=== PATIENT | male | born 1995 | race Two or more races ===

== ENCOUNTER 2023-07-12 10:39 | Emergency (ER) | payer OTHER ==
[~2023-07-12] VITALS: Ht 180.3 cm; Wt 98.0 kg
[2023-07-12 10:43] VITALS: BP 136/73; PULSE 83; RESP 16; TEMP 98.2
[2023-07-12] MEDS ORDERED: antibiotic PO (10:44)
[2023-07-12] MEDS: AMOX TR/POT CLAV 875 MG/125 MG TABLET PO ONE (11:12)
[2023-07-12] MEDS: IBUPROFEN 600 MG TABLET PO ONE (11:12)
[2023-07-12] MEDS ORDERED: ACET-3385 PO (11:32)
[2023-07-12] MEDS ORDERED: IBUP-1492 PO (11:32)
[2023-07-12] MEDS ORDERED: AMOX1TAB16 PO (11:32)
== END 2023-07-12 12:00 | disposition home or self-care (01) ==
LOC: EMS 10:40
DX: H66.92 Otitis media, unspecified, left ear (principal)
CPT/HCPCS: 99283